=== PATIENT | female | born 1985 | race American Indian/Alaskan Native ===

== ENCOUNTER 2017-02-28 22:11 | Observation (INO) | payer BC ==
[~2017-02-28] VITALS: Ht 167.6 cm; Wt 98.3 kg
[~2017-02-28 22:11] MED LIST: ACID CONTROL150 MG PO; CLOMIPHENE CITR50 MG PO; ENOXAPARIN40 MG/0.4 SUB-Q; HYOSCYAMINE0.125 M1 SL; IBUPROFEN600 MG PO; LEVSIN-SL0.125 MG SL; METFORMIN HCL750 MG PO; OXYCODON-ACETA1 EAC2 PO; PRENATAL VITAM1 EAC7 PO; PRILOSEC OTC20 MG PO; PROGESTERONE200 MG PV
[2017-03-01] MEDS ORDERED: PERCOCET 5-3251 EACH PO (17:59)
[2017-03-01] MEDS ORDERED: PROMETHAZINE HC25 M1 PO (18:01)
[2017-03-01] MEDS ORDERED: PHENERGAN25 MG PR (18:03)
--- NOTE | 2017-03-02 15:37 | HP ---
[facility] [address] [place], [place] [address] Signed DATE OF ADMISSION: 03/01/17 SUBJECTIVE The patient is a 31-year-old, 4, SAB x2, para 1, with last menstrual period of 01/12/2017. Ovulation test positive on 02/01/2017, positive test at home 02/11/2017. The patient presents to the Emergency Department with acute onset of left lower quadrant pain last night with nausea and vomiting and some scant spotting. She has been on Clomid for infertility issues. Most recently, had a very early miscarriage in September of this year, probably about 4-week . Ultrasound was performed which showed an intrauterine about 6 weeks in size, but the pole was measuring small enough that they could really see heart tones, so very early . The other issue was a left adnexal fullness and some complex free fluid in the left lower quadrant. The patient's beta HCG on 02/27 was roughly 13,000; on 02/28, was 23,000; and then on 03/01 was 19,000. Her hematocrit has gone from 38 on the down to 29 on 22nd today. PAST MEDICAL HISTORY: Significant for factor V Leiden disorder. GYNECOLOGIC HISTORY: Normal Paps and infertility issues. PAST SURGICAL HISTORY Bariatric surgery, in 2011, left elbow surgery, and laparoscopic cholecystectomy in October of 2016. ALLERGIES: Hydrocodone, severe itching; and Morphine, rash. MEDICATIONS Currently a Vitamin, Metformin, Omeprazole, Lovenox 140 mg daily and Prometrium 200 mg vaginally daily. Her Rh status is 0 positive. PHYSICAL EXAMINATION GENERAL: She is well nourished, well developed, white female, appears uncomfortable. She is afebrile with vital signs stable. LUNGS: Clear bilaterally. CARDIOVASCULAR: Regular rate and rhythm. No murmur appreciated. ABDOMEN: Soft. Good bowel sounds. Nondistended. She does have significant left lower quadrant tenderness. There is no guarding or rebound. : Deferred. EXTREMITIES: Nontender without edema. ASSESSMENT AND PLAN A 31-year-old multiparous early intrauterine and highly suspicious for coexisting ectopic given how the clots have been substantially elevated and Electronically Signed By: NAOMI MILIAN MD 03/02/17 1537 PATIENT NAME: ARTURO HINOJOSA HISTORY AND PHYSICAL DATE OF : 85 PHYSICIAN: NAOMI MILIAN MD REPORT #: [id number] REPORT IS CONFIDENTIAL AND NOT TO BE RELEASED WITHOUT AUTHORIZATION [address] [address] Signed now slight the fall, but very normal ultrasound yesterday. He patient is consented for diagnostic laparoscopy. She understands risks and benefits of the procedure, and that there is a slight risk for losing the intrauterine as well as the suspected ectopic. Given the level of her pain, I am very again suspicious. We will proceed. MD CHRISTOPHER Dugan/Adarsh /[id number] Electronically Signed By: NAOMI MILIAN MD 03/02/17 1537 PATIENT NAME: ARTURO HINOJOSA HISTORY AND PHYSICAL DATE OF : 85 PHYSICIAN: NAOMI MILIAN MD REPORT #: [id number] REPORT IS CONFIDENTIAL AND NOT TO BE RELEASED WITHOUT AUTHORIZATION
--- NOTE | 2017-03-02 15:37 | OR ---
[facility] [address] [place], [place] [address] Signed DATE OF PROCEDURE: 03/01/17 PREOPERATIVE DIAGNOSES A 31-year-old 4, spontaneous abort ion 2, para 1, with 6 week intrauterine and left ectopic . POSTOPERATIVE DIAGNOSES A 31-year-old 4, spontaneous 2, para 1, with 6 week intrauterine and left ectopic and hemoperitoneum. PROCEDURE Laparoscopic salpingostomy and evacuation of products of conception from left fallopian tube. ANESTHESIA: General endotracheal per Ant [place] CRNA. IV FLUIDS: In 1050 mL of Lactated Ringer's. URINE OUTPUT: 100 mL with Fall draining to gravity. ESTIMATED BLOOD LOSS: 30 mL. FINDINGS Hemoperitoneum, approximately 150 mL of blood with an enlarged gravid uterus, left fallopian tube enlarged with products of conception extruding through the fimbria. PROCEDURE TECHNIQUE The patient was taken back to the operating room with IV fluids hanging. She was placed on the operating table in supine position, underwent general endotracheal anesthesia with rapid sequence intubation and was then placed in dorsal lithotomy position. She was prepped and draped in norm a l sterile fashion. A Fall catheter was then placed into her bladder under sterile technique and a sterile sponge stick placed into the vagina. Attention was then turned to the patient's abdomen, where a 0.5% plain Marcaine was injected subcutaneously into the infraumbilical fold, approximately 3 mL. A 10 blade scalpel was then used to incise the infraumbilical fold in a vertical fashion along her prior scar and Veress needle was then placed through that incision all tenting up her pannus. A positive drop test was performed and the abdomen was insufflated with approximately 3 L of carbon dioxide to a maximum pressure of 14 mmHg. The Veress needle was removed and a 5 mm trocar was placed, but due to the depth of the patient's abdomen, it was not able to penetrate through the fascia. It was then removed and dissection then took place with a scalpel initially to enlarge the incision to 10 mm in size and dissection down to the level of the fascial plane with Metzenbaum scissors and mosquito Electronically Signed By: NAOMI MILIAN MD 03/02/17 1537 PATIENT NAME: ARTURO HINOJOSA OPERATIVE REPORT DATE OF : 85 PHYSICIAN: NAOMI MILIAN MD REPORT #: [id number] REPORT IS CONFIDENTIAL AND NOT TO BE RELEASED WITHOUT AUTHORIZATION [facility] [address] [place], [place] [address] Signed clamps was performed. Once the fascia was encountered, an 0 Vicryl was placed on either side of the incision and the Lidya trocar was then placed through the incision with the help of an S retractor. The S tractor was removed, Lidya placed easily and tied down with the 0 Vicryl on either side. The laparoscope was placed through the incision with carbon dioxide on and the abdomen was insufflated well, and abdomen and pelvis were easily visualized. It was noted there was hemoperitoneum and enlarged uterus and after mobilizing t h e bowel, the left fallopian tube was noted to have an ectopic with products of conception extruding through the fimbriated end. A 2nd incision site was then made lateral and parallel to the infraumbilical fold at the left side with a 5 mm incision made with a scalpel injecting approximately 1 mL of 0.5% plain Marcaine subcutaneously and 5 mm trocar was then placed under direct visualization. Trocar was removed and the probe remained behind. A blunt probe was placed through the 5 mm site and inspection of t h e pelvis was made, it was noted that there was some scarring at the area of the bladder flap. The left fimbria on the fallopian tube was somewhat abnormal and appeared as if there were some products of conception adherent to itself. The [place] LigaSure apparatus was then used to make an incision in the fallopian tube and attempt to remove the products of conception. This did not work very well due to the nature of the instrument and that was abandoned. A dolphin tip grasper was then used and cautery applied to it. It more readily dissected the tube and products of conception were grasped and removed. Large amounts of clot and tissue were removed from the fimbriated end and placed in the anterior cul de sac. Once it appeared that the tube was cleared of all debris and it was adequately cauterized, the suction device was then used to remove all products of conception and sent off to Pathology. Subsequently, the suction desktop architect was used to clean out the pelvis of hemoperitoneum. The patient was taken in Trendelenburg and removed from Trendelenburg, flattened down and good amount of irrigation was used to clear out the pelvis. The patient was then replaced into Trendelenburg position and the area of surgery revisited. The [place] LigaSure apparatus was then used to remove the abnormal tissue that appeared to be attached to the fimbriated end of the tube that was then removed through the 10 mm scope and sent off with the products of conception. Good hemostasis was achieved on that area, as well again the area of salpingostomy and once good hemostasis was felt to be adequately achieved and irrigation, all suctioned as much as possible and all instruments were then removed from the abdomen. The 5 mm site was cleared and under direct visualization it was removed. The Lidya port was then easily removed and the fascial plane identified easily, reapproximated with 0 Vicryl in a continuous running fashion and the 2 sutures on either side were then reapproximated as well. Good hemostasis was achieved there. The subcutaneous tissue was reapproximated with 3-0 repeat and then the subcuticular tissue was reapproximated with 3-0 repeat. Again, good hemostasis was achieved and attention was turned to the 5 mm incision, which was also reapproximated with 3-0 repeat in a continuous running fashion with good hemostasis. Steri-Strips and pressure dressings were applied to the incision. The patient was awakened and extubated. Sponge stick was removed from the vagina. Products of conception were sent off to Pathology. There were Electronically Signed By: NAOMI MILIAN MD 03/02/17 1537 PATIENT NAME: ARTURO HINOJOSA OPERATIVE REPORT DATE OF : 85 PHYSICIAN: NAOMI MILIAN MD REPORT #: [id number] REPORT IS CONFIDENTIAL AND NOT TO BE RELEASED WITHOUT AUTHORIZATION [facility] [address] [place], [place] [address] Signed no complications. Sponge and instrument counts were correct. The patient was taken to recovery room in stable condition. MD CHRISTOPHER Dugan/Adarsh /[id number] Electronically Signed By: NAOMI MILIAN MD 03/02/17 1537 PATIENT NAME: ARTURO HINOJOSA OPERATIVE REPORT DATE OF : 85 PHYSICIAN: NAOMI MILIAN MD REPORT #: [id number] REPORT IS CONFIDENTIAL AND NOT TO BE RELEASED WITHOUT AUTHORIZATION
== END 2017-03-01 20:25 | disposition home or self-care (01) ==
LOC: ED 22:11 → MS 22:12
PROVIDERS: ADMIT Obstetrics & Gynecology
PROC: 10T24ZZ Resection of Products of Conception, Ectopic, Percutaneous Endoscopic Approach (ICD-10-PCS; principal; 2017-02-28)
PROC: 3E0234Z Introduction of Serum, Toxoid and Vaccine into Muscle, Percutaneous Approach (ICD-10-PCS; 2017-03-01)
DX: O00.112 Left tubal pregnancy with intrauterine pregnancy (principal); O99.111 Other diseases of the blood and blood-forming organs and certain disorders involving the immune mechanism complicating pregnancy, first trimester; D68.51 Activated protein C resistance; O99.611 Diseases of the digestive system complicating pregnancy, first trimester; K66.1 Hemoperitoneum; O99.841 Bariatric surgery status complicating pregnancy, first trimester; Z79.01 Long term (current) use of anticoagulants; Z79.899 Other long term (current) drug therapy; Z3A.01 Less than 8 weeks gestation of pregnancy; Z88.5 Allergy status to narcotic agent; Z23 Encounter for immunization
CPT/HCPCS: 00840; 00860; 36415; 76801; 76817; 80053; 81001; 83690; 84702; 85025; 85610; 85730; 86900; 86901; 90674; 96361; 96372; 96374; 96375; 96376; 99285; G0008; G0378; J1170; J1200; J1650; J2250; J2405; J2550; J2704; J2765; J3010; J7030; J7120

== ENCOUNTER 2017-04-23 18:11 | Observation (INO) | payer BC ==
[~2017-04-23] VITALS: Ht 167.6 cm; Wt 97.1 kg
[~2017-04-23 18:11] MED LIST changes: +PERCOCET 5-3251 EACH PO; +PHENERGAN25 MG PR; +PROMETHAZINE HC25 M1 PO
--- NOTE | 2017-04-23 21:43 | NUR ---
Pt admitted at 2105 from Er via stretcher, Dx of rectal thrombus Hernia. Pt alert and oriented, pt at 14wks. eamon pad in place. Pt aware to notify RN if excessive vaginal bleeding/pad needing to be changed more frequent than 1/2-1 hr. Pt has FactorV, Lovenox chnaged this admission to Heparin as per new orders. Teaching re Heparin given to pt verbally. stated understanding. Currently no c/o pain. IVF infusing w/o problems. Pt sitting up in bed, and daughter in room, pt eating regular food. Aware of NPO status after midnight. no c/o furhter itching or n/v at this time. All oriented to room and hosp procedures scheduled for am
--- NOTE | 2017-04-23 22:40 | NUR ---
PATIENT INITIAL ASSESMENT COMPLETED AND RECORDED. PATIENT IS NAUSEAOUS AND HAD A BOUT OF EMESIS. PATIENT GIVEN PRN ZOFRAN. PATIENT STATED "I HAVE BEEN SICK ON AND OFF THROUGHOUT THE " PATIENT ALSO RATES PAIN AT A 5/10. PATIENT GIVEN PRN PAIN MEDICATION. PATIENT IS ALSO REQUESTIN BENADRYL FOR ITCHING CAUSED BY THE PAIN MEDICATION. PATIENT GIVEN PRN BENADRYL PER ORDER. PATIENT IS INDEPENDENT IN THE ROOM AND IS STEADY ON HER FEET. PATIENT DENIES ANY FURTHER NEEDS CALL LIGHT IN REACH.
--- NOTE | 2017-04-23 23:37 | NUR ---
pt medicated witjh dilaudid 0.5mg IV c/o 01/18 reactum area pain, denies abd cramping, pt crying. Reassured, calmer. IVF infusing. no further c/o n/v. Aware of NPO status after midnights. Primary RN to be notified, will reassess pain med needs
--- NOTE | 2017-04-24 00:07 | NUR ---
PATIENT IS RESTING IN BED WATCHING TV. PATIENT STATED "PAIN IS LESS, STILL UNCOMFORTABLE BUT I CAN TOLERATE IT" PATIENT DENIES ANY NAUSEA. CALL LIGHT IN REACH.
--- NOTE | 2017-04-24 01:12 | NUR ---
PATIENT RATES PAIN AT AN 8/10. PATIENT GIVEN PRN PAIN MEDICATION PER ORDER. PATIENT DENIES ANY NAUSEA. NO FURTHER NEEDS NOTED. CALL LIGHT IN REACH
--- NOTE | 2017-04-24 02:46 | NUR ---
PATIENT GIVEN PRN PAIN MEDICATION FOR 6/10 PAIN. PATIENT DENIES ANY NAUSEA. PATIENT HAD MULTIPLE QUESTIONS ABOUT CONDITION, MEDICATIONS, AND TREATMENT. ANSWERED QUESTIONS TO THE BEST OF MY KNOWLEDGE. PATIENT DENIES ANY FURTHER NEEDS. CALL LIGHT IN REACH.
--- NOTE | 2017-04-24 04:30 | NUR ---
medicated with Dilaudid 1mg IV, c/o 5/10 rectum area pain, no c/o n/v, no other requests, NPO for am procedure
--- NOTE | 2017-04-24 05:07 | NUR ---
PATIENT RESTED ON AND OFF SINCE ARRIVAL. PATIENT RECEIVED PRN ZOFRAN X1, PRN BENADRYL X2. PATIENT RECEIVED PRN PAIN MEDICATION MULTIPLE TIMES. PATIENT IS INDEPENDENT IN THE ROOM AND IS STEADY ON HER FEET. PATIENT HAS BEEN NPO SINCE MIDNIGHT. PATIENT DOES HAVE SOME DARK BROWN DISCHARGE FROM RECTUM, WHEN SHE RIPES. PATIENT IS AAO X3 AND [facility]
--- NOTE | 2017-04-24 06:44 | NUR ---
PATIENT GIVEN PRN PAIN MEDICATION PER ORDER. PATIENT RATES PAIN AT A 6/10. IN ROOM WITH DR. SMITH DURING RECTAL EXAM. ALL PATIENTS QUESTIONS ANSWERED. NO FURTHER NEEDS NOTED. CALL LIGHT IN REACH.
--- NOTE | 2017-04-24 09:00 | NUR ---
PATIENT UP OUT OF BED, COMPLAINTS OF PAIN. 6/10 ON PAIN SCALE. STATES " MY BUTT IS HURTING BAD SINCE CHECKED EVERYTHING OUT". ADMINISTERED 1 MG DILAUDID FOR PAIN, AND THEN IV ZOFRAN FOR NAUSEA. PATIENT REQUESTING TO EAT.
--- NOTE | 2017-04-24 11:08 | NUR ---
PATIENT WILL CALL WHEN SHE IS READY TO TAKE A SHOWER. ALSO IS SET UP FOR HER SHOWER. RIGHT NOW IS SITTING UP IN BED PLAYING A GAME ON HER PHONE.
--- NOTE | 2017-04-24 11:36 | NUR ---
MED REC COMPLETE WITH REFILL HISTORY AND PATIENT INTERVIEW.
[2017-04-24] MEDS ORDERED: ANUSOL-HC25 MG PR (13:31)
--- NOTE | 2017-04-24 14:13 | NUR ---
DR. BRICE ROUNDED ON PATIENT, NEW ORDERS FOR DISCHARGE. DR. BRICE CHECKED HEART TONES WITH DOPPLER HEART RATE 150S. PATIENT REPORTS FEELING BETTER AND COMFORTABLE GOING HOME.
[2017-04-24] MEDS ORDERED: ENOXAPARIN150 MG/1 M SUB-Q (14:14)
--- NOTE | 2017-04-25 08:22 | CONS ---
[facility] [address] [place], [place] [address] Signed DATE OF CONSULTATION: 04/24/2017 CHIEF COMPLAINT: Anal pain. HISTORY OF PRESENT ILLNESS: Leah is a 31-year-old female with Factor V Leiden deficiency. Consequently, she has been 4 times and has 1 child. Most recently, she got with twins; one was an ectopic and so Dr. Bliss had taken care of that. Later, ultrasound revealed a subchorionic bleed and she has had a little bit of discharge from the vagina. She is now 14 weeks. They happened to live an hour away from our hospital and she has been on Lovenox 140 mg subcu daily. She has some trouble with sinuses particularly when it is dry at this time of year when it is cold and the furnaces are running. She uses a saline wash. She said it is very common that she gets a little postnasal drip from a saline wash and she will end up with diarrhea for a day or two. Consequently, she had some diarrhea; but for some reason, had a lot of anal pain. She had called her optical fabricator over the phone. She decided to go to the local clinic and she saw Denice Potter. It was decided to send her up to [place] to our local emergency room. In emergency room, Dr. Corado had called me as a general surgeon on-call and was worried that she had a thrombosed internal hemorrhoid that might need lanced. Because of her pain and the distance from her home, we went ahead and admitted her last night. Overnight, she has done fine. PAST MEDICAL HISTORY: Factor V Leiden deficiency and hemorrhoids. PAST SURGICAL HISTORY: Vertical sleeve gastrectomy in [place], , left elbow surgery, laparoscopic cholecystectomy, and ectopic . SOCIAL HISTORY: She does not smoke or drink. She is and has 1 child. She is a [id number] mother. She prefers the [employer] over in [place]. LDR RN: Toma Bliss MD. PRIMARY CARE PROVIDER: GABRIELA Oglesby, in [place]. FAMILY HISTORY: She is adopted. She is a lummi from [place]. REVIEW OF SYSTEMS: Electronically Signed By: AUREA SMITH MD 04/25/17 0822 PATIENT NAME: LEAH HINOJOSA CONSULTATION DATE OF : 85 PHYSICIAN: AUREA SMITH MD REPORT #: [id number] REPORT IS CONFIDENTIAL AND NOT TO BE RELEASED WITHOUT AUTHORIZATION [facility] [address] [place], [place] [address] Signed She had 10 systems reviewed and no other issues uncovered. ALLERGIES: Morphine and Hydrocodone. MEDICATIONS: Lovenox, metformin, Prilosec, vitamin, Progesterone. PHYSICAL EXAMINATION: VITAL SIGNS: Blood pressure is 95/56, heart rate is 87, respiratory rate is 15, temperature is 97.4. She is 96% on room air. She is 5 feet 6 inches at 97 kg. GENERAL: Leah is a 31-year-old healthy female. She does not appear systemically ill or toxic. LUNGS: Clear to auscultation. HEART: Regular rate and rhythm. ABDOMEN: Soft and flat. With our nurse in the room, I examined outside the anus and at the 5 o'clock position, she has just a small external hemorrhoid. She has good sphincter tone. With insertion of the index finger, she seemed to have a lot of pain. I encountered a fibrous piece of tissue, I pulled that out and she had a 12-15 mm length piece of fibrous tissue. Almost like a splinter, probably from a green perdomo, but were not sure. On re-insertion of the index finger, I carefully felt around the anal canal, I really do not feel any mass or evidence of a thrombosed hemorrhoid. LABORATORY DATA: Her white blood cell count 11.6, hemoglobin 11.9. Electrolytes are unremarkable. INR 0.9. Liver function tests are negative. Albumin is 3.5. ASSESSMENT AND PLAN: Leah is a 31-year-old female who is having some anal pain after some diarrhea. It is always possible she has a thrombosed hemorrhoid. It is still very soft versus an anal fissure. I think at this point we will treat her conservatively and will check in with her optical fabricator here in just a little bit. I have reviewed this with Leah. She has expressed understanding and agrees with above plan. Aurea Smith MD Electronically Signed By: AUREA SMITH MD 04/25/17 0822 PATIENT NAME: LEAH HINOJOSA CONSULTATION DATE OF : 85 PHYSICIAN: UAREA SMITH MD REPORT #: [id number] REPORT IS CONFIDENTIAL AND NOT TO BE RELEASED WITHOUT AUTHORIZATION [address] [address] Signed ALB/MODL /[id number] cc: MD Denice Alfred [facility]- Electronically Signed By: AUREA SMITH MD 04/25/17 08 PATIENT NAME: LEAH HINOJOSA CONSULTATION DATE OF : 85 PHYSICIAN: AUREA SMITH MD REPORT #: [id number] REPORT IS CONFIDENTIAL AND NOT TO BE RELEASED WITHOUT AUTHORIZATION
== END 2017-04-24 14:57 | disposition home or self-care (01) ==
LOC: ED 18:11 → MS 18:12
PROVIDERS: ADMIT Colon & Rectal Surgery
DX: O99.89 Other specified diseases and conditions complicating pregnancy, childbirth and the puerperium (principal); K62.89 Other specified diseases of anus and rectum; O22.42 Hemorrhoids in pregnancy, second trimester; O99.112 Other diseases of the blood and blood-forming organs and certain disorders involving the immune mechanism complicating pregnancy, second trimester; D68.51 Activated protein C resistance; O99.842 Bariatric surgery status complicating pregnancy, second trimester; O46.8X2 Other antepartum hemorrhage, second trimester; Z3A.14 14 weeks gestation of pregnancy; Z88.5 Allergy status to narcotic agent; Z79.899 Other long term (current) drug therapy; Z79.84 Long term (current) use of oral hypoglycemic drugs; Z79.01 Long term (current) use of anticoagulants
CPT/HCPCS: 80053; 85025; 85520; 85610; 85730; 96361; 96372; 96374; 96375; 96376; 99285; G0378; J1170; J1644; J2405; J7030

== ENCOUNTER 2017-09-24 11:21 | Inpatient (IN) | payer BC ==
[~2017-09-24] VITALS: Ht 167.6 cm; Wt 103.0 kg
[~2017-09-24 11:21] MED LIST changes: +ANUSOL-HC25 MG PR; +ENOXAPARIN150 MG/1 M SUB-Q
--- NOTE | 2017-10-16 08:34 | NUR ---
10/16/17 0834 Shelby Soto TO PACU, ALERT AND ORIENTED. DENIES BEING DIZZY, ITCHING, PAIN OR NAUSEA.
--- NOTE | 2017-10-17 10:18 | OR ---
[facility] [address] [place], [place] [address] Signed DATE OF OPERATION: 10/16/2017 SURGEON: Ross Leong MD PATIENT OF: Ross Leong MD PREOPERATIVE DIAGNOSES: Term , previous section. POSTOPERATIVE DIAGNOSES: Term , previous section. PROCEDURE: Repeat low transverse segment section. Delivery of live male . SPECIAL DELIVERY WORKER: Braulio Jean Baptiste DO ANESTHESIA: Spinal. ESTIMATED BLOOD LOSS: 700 mL. COMPLICATIONS: None. DRAINS: Fall to bladder. FINDINGS: Live male infant, Apgars nine and nine. Weight 7 pounds 1 ounce. Normal uterus except for a fairly thin lower uterine segment. Normal tubes and ovaries bilateral. No evidence of previous ectopic . DESCRIPTION OF PROCEDURE: The patient was brought to the operating room, placed in supine position. After adequate spinal anesthesia was obtained, she was prepped and draped in usual sterile fashion. Fall catheter was placed in the bladder. A Pfannenstiel skin incision was Electronically Signed By: ROSS LEONG MD 10/17/17 1018 PATIENT NAME: ARTURO HINOJOSA OPERATIVE REPORT DATE OF : 85 REPORT #: [id number] PHYSICIAN: ROSS LEONG MD PCP: NO PRIMARY CARE PHYSICIAN REPORT IS CONFIDENTIAL AND NOT TO BE RELEASED WITHOUT AUTHORIZATION [address] [address] Signed made through previous surgical scar using a scalpel. Subcutaneous tissue was dissected with a scalpel and Bovie. Fascia was nicked with the scalpel and extended in transverse fashion using curved scissors. The underlying abdominal musculature was bluntly and sharply from the fascia above and below the incision. The abdominal musculature was bluntly and sharply along the midline. The peritoneum was grasped with hemostats, elevated and nicked with Metzenbaum scissors and extended in vertical fashion using Metzenbaum scissors. The Samy self-retaining retractor was inserted into the incision and tightened in place. The lower uterine segment was identified and it was noted to be somewhat thin. Bladder was noted to be below the area of dissection. The lower uterine segment was then carefully nicked with scalpel. Clear fluid came from the incision. The incision was extended transverse fashion using finger dissection. The was noted to be in vertex presentation and the infant's head easily delivered from the incision. Cord was noted to be around the neck twice tightly. Both loops were removed and the rest of the easily delivered from the incision. The mouth and nose were suctioned with bulb syringe while the cord was doubly clamped and cut. The was passed off table in good condition to awaiting nurse. The placenta was manually removed and the uterine cavity explored a lap pad to remove any retained membranes. The membranes were slightly more difficult to remove than normal, but they were all removed using ring forceps and a lap pad. When all the membranes were removed, an angle stitch of 0 Monocryl was placed in one incision and a running locking stitch of 0 Monocryl starting at the other end used to close the incision. A 2nd running stitch of 0 Monocryl was used to imbricate the 1st layer. Good hemostasis was noted. The entire pelvis was irrigated, suctioned, examined, and noted to have good hemostasis. The Samy retractor was removed and a sheet of ACell placed over the lower uterine segment to help with healing. The anterior wall peritoneum was then closed using running stitch of 2-0 Vicryl suture. The abdominal musculature was reapproximated using interrupted stitches of 0 Vicryl suture. The abdominal wall incision was irrigated, suctioned, examined any superficial bleeding spots cauterized with the Bovie. Good hemostasis was noted. Powdered ACell then sprinkled on the abdominal musculature. The fascia was closed using two running stitches of 0 Vicryl suture meeting in the midline. Subcutaneous tissue was irrigated, suctioned, and examined any bleeding spots cauterized with the Bovie. The remaining powdered ACell was sprinkled on the subcutaneous tissue, which was then closed using interrupted stitches of 3-0 Vicryl suture. Skin was reapproximated using skin clips. The patient tolerated the procedure well, went to recovery room in good condition. The sponge, needle, and instrument count correct at the end of procedure. Electronically Signed By: ROSS LEONG MD 10/17/17 1018 PATIENT NAME: ARTURO HINOJOSA OPERATIVE REPORT DATE OF : 85 REPORT #: [id number] PHYSICIAN: ROSS LEONG MD PCP: NO PRIMARY CARE PHYSICIAN REPORT IS CONFIDENTIAL AND NOT TO BE RELEASED WITHOUT AUTHORIZATION [facility] [address] [place] [address] [place], [place] [address] Signed MD BERNA Goldberg/MODL /[id number] Copies: ~ Electronically Signed By: ROSS LEONG MD 10/17/17 1018 PATIENT NAME: ARTURO HINOJOSA OPERATIVE REPORT DATE OF : 85 REPORT #: [id number] PHYSICIAN: ROSS LEONG MD PCP: NO PRIMARY CARE PHYSICIAN REPORT IS CONFIDENTIAL AND NOT TO BE RELEASED WITHOUT AUTHORIZATION
--- NOTE | 2017-10-18 09:16 | PR ---
[facility] [address] [place] [address] Signed PP Progress Notes Datetime Report Generated by CPN: 10/18/2017 09:16 SUBJECTIVE: [id number] Pain: Within normal limits Nausea/Vomiting: Denies Vital Signs: [id number] Vital Signs: Reviewed; Within Normal Limits Notable Details: PP HGb/Hct = 11.5/32.5 EXAM: [id number] Abdomen/Uterus: Normal Lochia: Normal Extremities: Normal Incision: Normal IMPRESSION/PLAN/PROCEDURES: [id number] Impression: Normal progression Plan: Remove tien; Discharge Procedures: None Progress Notes: Doing well, ready to go home. Signing Physician: Ross Valerio MD Copies: ~ *Electronically Signed* 10/18/17 0916 ROSS VALERIO MD PATIENT NAME: ARTURO HINOJOSA PROGRESS NOTE DATE OF : 85 PHYSICIAN: ROSS VALERIO MD RPT #: [id number] REPORT IS CONFIDENTIAL AND NOT TO BE RELEASED WITHOUT AUTHORIZATION
== END 2017-10-18 12:00 | disposition home or self-care (01) | DRG 765 ==
LOC: FBC 10-16 05:46
PROVIDERS: ADMIT General Practice
PROC: 10D00Z1 Extraction of Products of Conception, Low, Open Approach (ICD-10-PCS; principal; 2017-10-16 06:45)
DX: O34.211 Maternal care for low transverse scar from previous cesarean delivery (principal); O99.12 Other diseases of the blood and blood-forming organs and certain disorders involving the immune mechanism complicating childbirth; D68.51 Activated protein C resistance; N85.8 Other specified noninflammatory disorders of uterus; O99.844 Bariatric surgery status complicating childbirth; O99.824 Streptococcus B carrier state complicating childbirth; O99.62 Diseases of the digestive system complicating childbirth; K21.9 Gastro-esophageal reflux disease without esophagitis; O69.81X0 Labor and delivery complicated by cord around neck, without compression, not applicable or unspecified; O99.814 Abnormal glucose complicating childbirth; Z3A.39 39 weeks gestation of pregnancy; Z86.718 Personal history of other venous thrombosis and embolism; Z88.5 Allergy status to narcotic agent; Z79.899 Other long term (current) drug therapy; Z79.01 Long term (current) use of anticoagulants; Z37.0 Single live birth
CPT/HCPCS: 01961; 36415; 85027; 85610; 85730; C1763; J0690; J1650; J2274; J2300; J2370; J2590; J7120